=== PATIENT | male | born 1980 | race Caucasian/White ===

== ENCOUNTER 2025-04-01 18:16 | Emergency (ER) | payer OTHER, SELFPAY ==
[2025-04-01 18:26] VITALS: BP 137/93; PULSE 82; RESP 16; TEMP 36.4; O2SAT 100
--- NOTE | 2025-04-01 19:30 | ED_ITS ---
HPI - Extremity Problem General Chief complaint: Extremity Problem,Nontraumatic Stated complaint: pain in left elbow for three months Time Seen by Provider: 04/01/25 18:45 Source: patient, family and RN notes reviewed Mode of arrival: ambulatory Limitations: no limitations History of Present Illness HPI Narrative: 44-year-old male presents Express Care complaining of left lateral elbow pain for approximately 3 months. Patient said 3 months ago he tried the swinging a golf club at [employer] when he said he developed pain after swinging the golf club. Patient reports initially having pain in his right left wrist and left lateral elbow since then the pain in his wrist has resolved he continues to have left lateral elbow pain. Patient states the pain is worse with pronation and supination of the elbow it when he is lifting something straight up with his left arm out and extended. Patient denies any numbness or tingling, or any other issues. Related Data Home Medications ?Medication ?Instructions ?Recorded ?Confirmed ?Last Taken ?Type No Home Medications 04/01/25 04/01/25 Unknown History Allergies Allergy/AdvReac Type Severity Reaction Status Date / Time No Known Allergies Allergy Verified 04/01/25 18:40 Review of Systems Review of Systems: CONSTITUTIONAL: Denies fever, chills, or sweats. EYES: Denies visual changes, redness, or discharge. ENT: Denies rhinorrhea, congestion, sore throat, or otalgia. CARDIOVASCULAR: Denies chest pain, palpitations, or edema. RESPIRATORY: Denies cough or dyspnea. GASTROINTESTINAL: Denies abdominal pain, nausea, vomiting, or diarrhea. GENITOURINARY: Denies dysuria or hematuria. SKIN: Denies rash, wound, or itching. MUSCULOSKELETAL: Denies back pain, joint pain, or myalgia. Positive for left lateral pain NEUROLOGIC: Denies headache, numbness, or weakness. PSYCHIATRIC: Denies anxiety or depression. All other systems reviewed are negative, except as documented in HPI. PMFSH Comments At the time of my signature, I reviewed and agree with the nursing past medical, surgical, social, and family history. There is no relevant family history pertinent to the patient complaint. Exam Narrative: GENERAL: This is a well-nourished, well-developed adult, in no apparent distress. They are non ill-appearing, nontoxic appearing. HEAD: normocephalic, atraumatic. EYES: Sclera clear/white. Vision is grossly intact. Conjunctiva normal. Extraocular movement intact. EARS: External ears normal Hearing grossly intact. NOSE: External nose normal THROAT: Mucous membranes moist NECK: Neck supple CARDIOVASCULAR: Regular rate and rhythm RESPIRATORY: Respiratory rate normal, respiratory effort nonlabored, no respiratory distress NEURO: awake, alert, and oriented to person, place and time. There were no obvious focal neurologic abnormalities. EXTREMITIES: Left elbow: No obvious deformity, injury, swelling, bruising, redness. Mild tenderness during pronation and supination. Patient has full range of motion. Tenderness to palpation to the left lateral epicondyle area. No pain was with passive wrist flexion. Capillary refill less than 3 seconds. Left radial Pulse 2 +palpable. Normal sensation. Neurovascular status intact distal injury. BACK: Nontender without deformity. Course Course Emergency Course: Portions of this record may have been created with voice recognition software Level of Care: Express Care Visit Vital Signs Vital signs: Vital Signs Temperature 97.6 F 04/01/25 18:26 Pulse Rate 82 04/01/25 18:26 Respiratory Rate 16 04/01/25 18:26 Blood Pressure 137/93 H 04/01/25 18:26 Pulse Oximetry 100 04/01/25 18:26 Oxygen Delivery Room Air 04/01/25 18:26 Temperature 97.6 F 04/01/25 18:26 Pulse Rate 82 04/01/25 18:26 Respiratory Rate 16 04/01/25 18:26 Blood Pressure 137/93 H 04/01/25 18:26 Pulse Oximetry 100 04/01/25 18:26 Oxygen Delivery Room Air 04/01/25 18:26 Reviewed MDM - Extremity (Nontraumatic) MDM Narrative Medical decision making narrative: Likely patient has a left elbow tendinopathy likely a tennis elbow. Offered patient x-ray of left double to assess bony structures and for arthritis and patient declined since he had no apparent injury to left elbow. Recommend conservative therapy. Patient given Gino wrap to left elbow. Advised follow-up with orthopedist if pain persist. Discussed physical exam findings. Advised supportive measures and signs/symptoms to go to the ER. Pt is appropriate for outpt treatment and f/u. Differential Diagnosis Differential diagnosis: Likely other (Elbow tendinopathy, golfers elbow, tennis elbow, bursitis, elbow strain) Critical Care Time Critical Care Time Critical Care Time: No Discharge Plan Discharge Clinical Impression: Tendinopathy of left elbow Patient Disposition: Home Condition: Stable Instructions: Tennis Elbow (ED) Additional Instructions: Apply ice 15-20 minute intervals several times a day Wear an Gino wrap or compression sleeve to the left elbow. Motrin 600mg -800mg every 8 hours, alternate with Tylenol 1000mg every 8 hours as needed Follow up with your primary care provider orthopedist in 1 week. Patient Language: Estonian Prescriptions: No Action No Home Medications Follow-up/Referrals: Ventura Sharp MD [Physician] - Timbo Schulz MD [Primary Care Provider] - Stand Alone Forms: Work/School Release IP Time of Disposition: 18:56
== END 2025-04-01 19:00 | disposition home or self-care (01) ==
PROVIDERS: PCP Family Medicine Adolescent Medicine
DX: M67.824 Other specified disorders of tendon, left elbow (principal)
CPT/HCPCS: 99202; G0463